=== PATIENT | male | born 1970 | race African-American/Black ===

== ENCOUNTER 2017-10-23 05:02 | Emergency (ER) | payer BC ==
[2017-10-23] MEDS ORDERED: Ketorolac Tromethamine 60 MG/2 ML VIAL ONE (05:59)
--- NOTE | 2017-10-23 10:27 | CT ---
PRELIMINARY REPORT/[facility]/EMERGENTY AFTER-HOURS PROCEDURE CT Lumbar Spine Without Intravenous Contrast CLINICAL HISTORY: 47 years old, male; Pain; Low back pain; Patient HX: History provided by patient, [id number] presents to the ed with C/O bilateral leg pain, for the past year. He reports it is worse when he tries to go to sle ep. He describes the pain as "when your foot falls asleep". He denies any recent fever or back inject ions. He denies any incontinence, recent injuries, falls, or traumas. TECHNIQUE: Axial computed tomography images of the lumbar spine without intravenous contrast. COMPARISON: No relevant prior studies available. FINDINGS: On axial CT images, no definite acute fracture is visible. Sagittal and coronal reconstructions show no fracture or subluxation. No significant intervertebral disc space narrowing. At L3-4, mild broad-based bulging of the disc annulus. At L4-5, moderate broad-based bulging of the disc annulus, slightly more prominent to the left of the midline. At L5-S1, moderate broad-based bulging of the disc annulus, slightly more prominent to the right of t he midline. No definite/significant focal disc herniation by CT, although MRI might be more specific/sensitive fo r of bulging versus protrusion/herniated discs, as clinically directed. 10-12 mm calculus in the uppe r right kidney, versus milk of calcium in a renal cyst. No significant hydronephrosis or hydroureter. IMPRESSION: No definite acute fracture or subluxation by CT. Other details/findings discussed above. Thank you for allowing us to participate in the care of your patient. Dictated and Authenticated by: Devin Leal MD 10/23/2017 7:13 AM Central Time ([place] & [place]) FINAL REPORT CT LUMBAR SPINE WITH GELLER AND SAGITTAL REFORMATIONS: Date: 10/23/17 FINDINGS/IMPRESSION: I agree with the preliminary report given by Basilio. POS: [facility]
== END 2017-10-23 07:46 | disposition home or self-care (01) ==
LOC: ERS 05:02
DX: M51.27 Other intervertebral disc displacement, lumbosacral region (principal); F17.290 Nicotine dependence, other tobacco product, uncomplicated
CPT/HCPCS: 72131; 96372; J1885

== ENCOUNTER 2018-01-22 12:34 | Outpatient (CLI) | payer BC | END 2018-01-22 12:35 | disposition home or self-care (01) | LOC: BICMRI 12:34 | PROVIDERS: ATTEND Family Medicine | DX: M51.26 Other intervertebral disc displacement, lumbar region (principal); M47.896 Other spondylosis, lumbar region; M99.83 Other biomechanical lesions of lumbar region | CPT/HCPCS: 72148 ==

== ENCOUNTER 2019-01-27 06:46 | Emergency (ER) | payer BC | END 2019-01-27 08:36 | disposition home or self-care (01) | LOC: ERS 06:46 | DX: M54.5 Low back pain (principal); F17.210 Nicotine dependence, cigarettes, uncomplicated | CPT/HCPCS: 99283 ==

== ENCOUNTER 2020-02-01 06:41 | Emergency (ER) | payer BC ==
[2020-02-01 07:49] LABS: #Basophils 0.1 thou/uL (0.0-0.2); #Eosinphils 0.2 thou/uL (0.0-0.7); #Lymphocytes 3.2 thou/uL (1.20-3.40); #Monocytes 0.6 thou/uL (0.11-0.59); #Neutrophils 5.7 thou/uL (1.40-6.50); %Basophils 1.2 % (0.0-1.0); %Eosinophils 2.1 % (0.0-10.0); %Lymphocytes 32.4 % (21.0-51.0); %Monocytes 6.1 % (0.0-10.0); %Neutrophils 58.2 % (42.0-75.0); Hemoglobin 15.2 g/dL (14.0-18.0); Mean Corpuscular HGB CONC 34.1 g/dL (32.0-36.0); Mean Corpuscular Hemoglobin 33.7 pg (27.0-31.0); Mean Corpuscular Volume 98.8 fL (78.0-98.0); Mean Platelet Volume 7.7 fL (7.4-10.4); Platelet Count 209 thou/uL (130-400); White Blood Cell (WBC) Count 9.7 thou/uL (4.8-10.8)
[2020-02-01 08:07] LABS: ALT (SGPT) 13 U/L (8-55); AST (SGOT) 19 U/L (5-34); Albumin 3.8 g/dL (3.5-5.0); Alkaline Phosphatase 82 U/L (40-110); Anion Gap 12 mmol/L (10-20); BUN (Urea Nitrogen) 10 mg/dL (8.9-20.6); Bilirubin, Total 0.2 mg/dL (0.2-1.2); Calc. Creatinine Clearance 0 mL/min (70-130); Calcium 8.7 mg/dL (7.8-10.44); Carbon Dioxide 26 mmol/L (22-29); Chloride 104 mmol/L (98-107); Estimated GFR-MDRD Greater than 90; Globulin 3.5 g/dL (2.4-3.5); Glucose 96 mg/dL (70-105); Lipase 15 U/L (8-78); Magnesium 2.2 mg/dL (1.6-2.6); Potassium 3.7 mmol/L (3.5-5.1); Protein, Total 7.3 g/dL (6.0-8.3); Sodium 138 mmol/L (136-145)
[2020-02-01 08:47] LABS: Bilirubin Negative (Negative); Blood, Urine Negative (Negative); Clarity Clear (Clear); Glucose, Urine (Dipstick) Normal (Negative); Ketone, Urine Negative (Negative); Leukocyte Negative Leu/uL (Negative); Nitrite Negative (Negative); Protein, Urine (Dipstick) 10 mg/dL (Neg-Trace); Specific Gravity, Urine 1.029 (1.002-1.036); Urobilinogen 3 mg/dL (Less than 2); pH, Urine 6.5 (5.0-9.0)
== END 2020-02-01 11:09 | disposition home or self-care (01) ==
LOC: ERS 06:41
DX: R11.2 Nausea with vomiting, unspecified (principal); F17.290 Nicotine dependence, other tobacco product, uncomplicated
CPT/HCPCS: 36415; 80053; 81003; 83690; 83735; 85025; 96361; 96374